=== PATIENT | male | born 1995 | race American Indian/Alaskan Native ===

== ENCOUNTER 2018-09-28 19:06 | Emergency (ER) | payer OTHER ==
[2018-09-28 19:42] VITALS: BP 114/67
--- NOTE | 2018-09-28 20:24 | Emergency Department Report ---
Blank Doc - Documentation Documentation: This is a 23-year-old male that presents with diarrhea. Denies any abdominal pain, nausea or vomiting. Patient also complaints left earache. This initial assessment/diagnostic orders/clinical plan/treatment(s) is/are subject to change based on patient's health status, clinical progression and re- assessment by fellow clinical providers in the ED. Further treatment and workup at subsequent clinical providers discretion. Patient/guardians urged not to elope from the ED as their condition may be serious if not clinically assessed and managed. Initial orders include: 1- Patient sent to [facility] for further evaluation and treatment 2-labs 3- XR abd
[2018-09-28 21:06] LABS: Basophils % (Auto) 0.4 % (0.0-1.8); Eosinophils # (Auto) 0.2 K/mm3 (0.0-0.4); Hematocrit 47.1 % (35.5-45.6); Hemoglobin 15.8 gm/dl (11.8-15.2); Lymphocytes # (Auto) 1.4 K/mm3 (1.2-5.4); Lymphocytes % (Auto) 23.5 % (13.4-35.0); Mean Corpuscular HGB Conc 34 % (32-34); Mean Corpuscular Volume 86 fl (84-94); Monocytes # (Auto) 0.7 K/mm3 (0.0-0.8); Monocytes % (Auto) 12.3 % (0.0-7.3); Platelet Count 215 K/mm3 (140-440); Red Blood Count 5.47 M/mm3 (3.65-5.03); Red Cell Distribution Width 13.6 % (13.2-15.2)
[2018-09-28 21:19] LABS: Alanine Aminotransferase 26 units/L (7-56); Albumin 4.5 g/dL (3.9-5); BUN/Creatinine Ratio 9; Blood Urea Nitrogen 10 mg/dL (9-20); Calcium 9.8 mg/dL (8.4-10.2); Hemolysis Index 9
--- NOTE | 2018-09-28 21:38 | XRay Report ---
EXAM: XR ABD SERIES W CXR 1V HISTORY: abd pain TECHNIQUE: Supine and erect views of the abdomen; frontal single view CXR COMPARISON: None available. FINDINGS: ABDOMEN: The bowel gas pattern is nonspecific and nonobstructive. There is no gross organomegaly, fr ee intraperitoneal air, or suspicious calcifications seen. The visualized bony structures are within normal limits. CHEST: The heart size and mediastinum are within normal limits. The lung reilly and costophrenic angl es are clear. There is no acute parenchymal infiltrate, pleural effusion, or pneumothorax seen. There is prominent lumbar rotatory dextroscoliosis. There is an approximately 7.1 mm sclerotic lesion in t he left inferior pubic ramus, presumed bone island. The visualized bony structures are otherwise with in normal limits. IMPRESSION: 1. Nonspecific, nonobstructive bowel gas pattern. 2. No gross organomegaly, free intraperitoneal air, or suspicious calcifications seen. 3. Prominent lumbar rotatory dextroscoliosis. 4. No evidence for acute cardiopulmonary disease seen. This document is electronically signed by Emanuel Caldera MD., September 28 2018 09:36:07 PM ET
--- NOTE | 2018-09-28 22:40 | Emergency Department Report ---
Vomiting/Diarrhea - HPI Chief Complaint: Nausea/Vomiting/Diarrhea Stated Complaint: LOOSE BOWELS/WATERY Time Seen by Provider: 09/28/18 20:22 Duration: 1 Day Severity: mild Nausea/Vomiting Severity: Mild Diarrhea Severity: Moderate Pain Severity: None Symptoms: Yes Watery Diarrhea, Yes Able to Tolerate Fluids, No Bloody diarrhea, No Fever, No Recent Unusual Foods, No Recent Untreated Water, No Recent use of Antibiotics, No Family w/ Similar Symptoms, No Contacts w/ Similar Symptoms, No Rash, No Hematuria, No Recent URI Symptoms Other History: Pt is a 23 yo male who presents to the ED with c/o N/V/D that began last night. He states he has generalized abdominal cramping but no pain. He denies any fever, urinary sx. He is able to tolerate liquids. ED Review of Systems ROS: Stated complaint: LOOSE BOWELS/WATERY Other details as noted in HPI Comment: All other systems reviewed and negative ED Past Medical Hx - Social History Smoking Status: Current Every Day Smoker - Medications Home Medications: Home Medications Medication Instructions Recorded Confirmed Last Taken Type Ondansetron [Zofran Odt] 4 mg PO Q8HR PRN #14 tab.rapdis 09/28/18 Unknown Rx Vomiting Diarrhea Exam - Exam General: Vital signs noted. No distress. Alert and acting appropriately. pt is non toxic appearing, well hydrated HEENT: Yes Moist Mucous Membranes Neck: No Adenopathy, No Rigidity Lungs: Yes Clear Lung Sounds, Yes Good Air Exchange, No Wheezes, No Stridor, No Cough, No Nasal Flaring, No Retractions, No Use of Accessory Muscles Heart exam: Regular: Yes, Murmur: No, Tachycardia: No Abdomen: Tenderness: No, Peritoneal Signs: No, Distention: No, Hyperactive Bowel sounds: No Skin exam: Rash: No, Edema: No, Normal turgor: Yes Neurologic: Alert and oriented, no deficits. Musculoskeletal: Unremarkable. ED Course Vital Signs 09/28/18 09/28/18 19:40 20:23 Temperature 98.5 F 98 F Pulse Rate 59 L 60 Respiratory 18 18 Rate Blood Pressure 114/67 114/67 O2 Sat by Pulse 99 99 Oximetry ED Medical Decision Making - Lab Data Result diagrams: 09/28/18 20:44 09/28/18 20:44 Laboratory Results - last 24 hr 09/28/18 09/28/18 20:44 20:44 WBC 6.0 RBC 5.47 H Hgb 15.8 H Hct 47.1 H MCV 86 MCH 29 MCHC 34 RDW 13.6 Plt Count 215 Lymph % (Auto) 23.5 [place] % (Auto) 12.3 H Eos % (Auto) 3.0 Baso % (Auto) 0.4 Lymph # 1.4 [place] # 0.7 Eos # 0.2 Baso # 0.0 Seg Neutrophils % 60.8 Seg Neutrophils # 3.7 Sodium 139 Potassium 4.0 Chloride 99.9 Carbon Dioxide 28 Anion Gap 15 BUN 10 Creatinine 1.1 Estimated GFR > 60 BUN/Creatinine Ratio 9 Glucose 90 Calcium 9.8 Total Bilirubin 0.50 AST 20 ALT 26 Alkaline Phosphatase 105 Total Protein 7.9 Albumin 4.5 Albumin/Globulin Ratio 1.3 Lipase 22 - Radiology Data Radiology results: report reviewed EXAM: XR ABD SERIES W CXR 1V HISTORY: abd pain TECHNIQUE: Supine and erect views of the abdomen; frontal single view CXR COMPARISON: None available. FINDINGS: ABDOMEN: The bowel gas pattern is nonspecific and nonobstructive. There is no gross organomegaly, free intraperitoneal air, or suspicious calcifications seen. The visualized bony structures are within normal limits. CHEST: The heart size and mediastinum are within normal limits. The lung reilly and costophrenic angles are clear. There is no acute parenchymal infiltrate, pleural effusion, or pneumothorax seen. There is prominent lumbar rotatory dextroscoliosis. There is an approximately 7.1 mm sclerotic lesion in the left inferior pubic ramus, presumed bone island. The visualized bony structures are otherwise within normal limits. IMPRESSION: 1. Nonspecific, nonobstructive bowel gas pattern. 2. No gross organomegaly, free intraperitoneal air, or suspicious calcifications seen. 3. Prominent lumbar rotatory dextroscoliosis. 4. No evidence for acute cardiopulmonary disease seen. This document is electronically signed by Emanuel Caldera MD., September 28 2018 09:36:07 PM ET - Medical Decision Making Pt is a 23 yo otherwise healthy male who presents for N/V/D since last night. No abd pain, no fever, no urinary sx. VSS. Labs WNL. Pt is well hydrated. CXR/Abdominal XR no acute process. Pt able to tolerate PO intake. Pt given zofran and able to tolerate PO while in the ED. Will give the pt a prescription for zofran. Advised to continue drinking plenty of fluids and bland diet. Return to the ED for any new or worsening symptoms. Follow up with primary care in the next 2-3 days. - Differential Diagnosis Gastroenteritis, N/V/D, Viral syndrome Critical care attestation.: If time is entered above; I have spent that time in minutes in the direct care of this critically ill patient, excluding procedure time. ED Disposition Clinical Impression: Nausea vomiting and diarrhea Disposition: TO HOME OR SELFCARE Is pt being admited?: No Does the pt Need Aspirin: No Condition: Stable Instructions: Acute Nausea and Vomiting (ED) Additional Instructions: Follow up with your primary care doctor in the next 2-3 days. Continue to drink plenty of fluids, bland diet. Return to the emergency room for any new or worsening symptoms. Prescriptions: Ondansetron [Zofran Odt] 4 mg PO Q8HR PRN #14 tab.rapdis PRN Reason: Nausea And Vomiting Referrals: JULISA BESS MD [Primary Care Provider] - 2-3 Days Time of Disposition: 22:51 Print Language: THAI
[2018-09-28] MEDS ORDERED: ZOFRAN ODT PO ONE (22:46)
== END 2018-09-28 23:12 | disposition home or self-care (01) ==
LOC: ED 19:06
DX: R11.2 Nausea with vomiting, unspecified (principal); R19.7 Diarrhea, unspecified; F17.200 Nicotine dependence, unspecified, uncomplicated; Z91.011 Allergy to milk products; Z91.010 Allergy to peanuts
CPT/HCPCS: 36415; 74022; 80053; 83690; 85025; 99283; Q0162